=== PATIENT | female | born 1950 | race Caucasian/White ===

== ENCOUNTER 2021-01-16 05:11 | Emergency (ER) | payer BC ==
[~2021-01-16] VITALS: Ht 157.5 cm; Wt 72.6 kg
[~2021-01-16 05:11] MED LIST: ASPIRIN81 M2 PO; CALCIUM 500 +1 EAC5 PO; DULCOLAX5 MG PO; LEVOTHYROXIN0.075 MG PO; VITAMIN B-12500 MCG PO; VITAMIN D3400 UNIT PO; ZOCOR20 MG PO
[2021-01-16 06:10] LABS: ABSOLUTE NEUTROPHILS 4.5 thou/uL (1.4-8.2); BASOPHILS 0.3 % (0.0-2.0); EOSINOPHILS 0.7 % (0.0-3.0); HEMATOCRIT 39.9 % (37.0-47.0); MCH 34.5 pg (26.0-34.0); MCV 98.4 fL (80.0-100.0); MONOCYTES 7.1 % (1.0-8.0); PLATELET COUNT 225 thou/uL (150-400); POLYS 64.9 % (36.0-66.0); RBC 4.06 mil/uL (4.20-5.00); RDW 12.5 % (10.5-14.5); WBC 6.9 thou/uL (4.0-11.0)
[2021-01-16 06:13] LABS: ANION GAP 11 mmol/L (7-16); BUN 15 mg/dL (7-18); CALCIUM 9.2 mg/dL (8.5-10.1); CHLORIDE 104 mmol/L (98-107); CO2 26 mmol/L (21-32); GLUCOSE 123 mg/dL (74-106); POTASSIUM 3.8 mmol/L (3.5-5.1); SODIUM 141 mmol/L (136-145)
[2021-01-16 06:22] LABS: TROPONIN-I <0.06 ng/mL (<0.06)
[2021-01-16 08:43] VITALS: BP 116/68
--- NOTE | 2021-01-16 09:44 | EKG ---
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
[2021-01-16] MEDS ORDERED: GUAIFENESIN-CO473 ML PO (10:14)
== END 2021-01-16 10:15 | disposition home or self-care (01) ==
LOC: ER 05:11
PROVIDERS: Emergency Medicine
DX: R55 Syncope and collapse (principal); Z20.822 Contact with and (suspected) exposure to COVID-19; R05 Cough; R09.81 Nasal congestion; Z98.890 Other specified postprocedural states; Z88.2 Allergy status to sulfonamides

== ENCOUNTER → 2021-01-28 | Outpatient (CLI) | payer BC ==
[~2021-01-28] MED LIST changes: +GUAIFENESIN-CO473 ML PO
== END ==
LOC: SJCVCIMAG 06:51
PROVIDERS: ATTEND Internal Medicine Cardiovascular Disease
DX: I35.1 Nonrheumatic aortic (valve) insufficiency (principal); R06.00 Dyspnea, unspecified; I25.10 Atherosclerotic heart disease of native coronary artery without angina pectoris; R55 Syncope and collapse; E78.5 Hyperlipidemia, unspecified

== ENCOUNTER → 2021-02-03 | Outpatient (CLI) | payer BC | LOC: SJCVCIMAG 01-30 06:51 | PROVIDERS: ATTEND Internal Medicine Cardiovascular Disease | DX: I25.10 Atherosclerotic heart disease of native coronary artery without angina pectoris (principal); R00.0 Tachycardia, unspecified; I49.3 Ventricular premature depolarization; E78.5 Hyperlipidemia, unspecified; E11.9 Type 2 diabetes mellitus without complications; Z88.2 Allergy status to sulfonamides; Z79.82 Long term (current) use of aspirin; Z79.899 Other long term (current) drug therapy ==

== ENCOUNTER → 2021-06-16 | Outpatient (CLI) | payer BC | LOC: SJCVCIMAG 12:43 | PROVIDERS: ATTEND Internal Medicine Cardiovascular Disease | DX: I08.1 Rheumatic disorders of both mitral and tricuspid valves (principal); R06.00 Dyspnea, unspecified; R55 Syncope and collapse ==